=== PATIENT | male | born 1985 | race Caucasian/White ===

== ENCOUNTER 2019-01-30 14:54 | Emergency (ER) | payer SELFPAY ==
--- NOTE | 2019-01-30 15:02 | PDOC ---
History of Present Illness - General Chief Complaint: Injury Stated Complaint: LACERATION INJURY RIGHT THUMB Time Seen by Provider: 01/30/19 15:01 History Source: Patient Exam Limitations: No Limitations - History of Present Illness Initial Comments: 01/30/19 15:10 33 year old male with no PMH presented to ED for right thumb laceration. Pt stated he was cutting wood with a saw, and accidentally cut his finger. He denied numbness, weakness, tingling, fever, chills. Pt admitted to right thumb pain. Last tetanus 10 years ago. Allergies: NKDA Past History - Past Medical History Allergies/Adverse Reactions: Allergies Allergy/AdvReac Type Severity Reaction Status Date / Time No Known Allergies Allergy Unverified 01/30/19 15:02 Home Medications: Ambulatory Orders Cephalexin Monohydrate [Keflex -] 500 mg PO TID 7 Days #21 capsule 01/30/19 Review of Systems - Review of Systems Able to Perform ROS?: Yes Comments:: 01/30/19 15:16 General: denied fever, chills, generalized weakness. HEENT: denied sore throat, rhinorrhea, ear pain. Heart: denied chest pain, palpitations, syncope, diaphoresis. Respiratory: denied shortness of breath, cough, sputum production, hemoptysis. Abdomen: denied abdominal pain, nausea, vomiting, diarrhea, constipation, blood in stool. : denied dysuria, increased urinary frequency, hematuria, urinary incontinence , flank pain. Back: denied back pain. Musculoskeletal: denied joint pain, muscle pain, joint swelling. Neurological: denied headache, dizziness, numbness, tingling, weakness. Skin: admitted to laceration. denied rash, abrasion. *Physical Exam - Physical Exam Comments: 01/30/19 15:17 Constitutional: Well-nourished, Well-developed, appearing stated age. HEENT: head is normocephalic, atraumatic. EOMI. PERRLA. Neck: supple. Full ROM. Heart: regular rhythm. no murmurs, rubs or gallops. Lungs: clear to auscultation bilaterally. no crackles, rhonchi or wheezing. no stridor. Abdomen: soft, nontender. normal bowel sounds. no rebound, guarding, masses. Extremities: peripheral pulses intact. no lower extremity edema. right thumb full ROM at MCP and DIP, full sensation. Neurological: CN 2-12 grossly intact. moves all four extremities. Psych: awake, alert, oriented x3. follows commands. answers questions appropriately. Skin: two 4.0 cm lacerations to right distal thumb, minimal active bleeding, no FB appreciated. Procedures - Laceration/Wound Repair Right Distal 1st digit Wound Length: 2.6 to 5.0 cm Wound Explored: clean, no foreign body present Wound's Depth, Shape: superficial, irregular Irrigated w/ Saline: Yes Betadine Prep: No Anesthesia: 1% Lidocaine Amount of Anesthetic (ccs): 8 Wound Debrided: minimal Wound Repaired With: Sutures Suture Size/Type: 4:0 Number of Sutures: 14 Sterile Dressing Applied: Yes Splint Applied: Yes Right Medial Distal 1st digit Wound Length: 2.6 to 5.0 cm Wound Explored: clean Wound's Depth, Shape: superficial Irrigated w/ Saline: Yes Betadine Prep: No Anesthesia: 1% Lidocaine Wound Debrided: minimal Wound Repaired With: Sutures Suture Size/Type: 5:0 Number of Sutures: 4 (with Eight 4.0) Sterile Dressing Applied: Yes Splint Applied: Yes Medical Decision Making - Medical Decision Making 01/30/19 15:12 33 year old male with no PMH presented to ED with accidental lacertion to right thumb after using saw to cut wood. Neurovascularly intact. Initial Vital Signs Temp Pulse Resp BP Pulse Ox 97.6 F 80 16 137/96 100 01/30/19 14:55 01/30/19 14:55 01/30/19 14:55 01/30/19 14:55 01/30/19 14:55 Afebrile. No tachycardia. No tachypnea. Mild hypertension. No hypoxia on room air. Imaging ordered: Hand XR Medications ordered: Tetanus immunization, Motrin 800 mg Labs ordered: none 01/30/19 17:36 Hand XR: tyra fracture. Medications ordered: Keflex 500 mg PO once Both lacerations repaired. 14 4.0 sutures to the most distal laceration. 12 total sutures to the more proximal laceration, 4 5.0 and 8 4.0. See procedure note. Wound covered with Bacitracin and gauze. Pt and son informed of how to care for wound and to keep it dry for 24-48 hours. Pt informed to return in 7 days for wound check. Work note given. Pt discharged. Discharge medications: Keflex 500 mg TID for 7 days *DC/Admit/Observation/Transfer Diagnosis at time of Disposition: Laceration, Phalanx, distal fracture of finger - Discharge Dispostion Disposition: HOME Condition at time of disposition: Improved Decision to Admit order: No - Prescriptions Prescriptions: Cephalexin Monohydrate [Keflex -] 500 mg PO TID 7 Days #21 capsule - Referrals Referrals: [facility] [place] [Provider Group] Devon Porras MD [Staff Physician] - Pelon Butterfield MD [Staff Physician] - - Patient Instructions Printed Discharge Instructions: DI for Laceration Repair -- Simple Additional Instructions: You were seen today for two laceration repairs. You were given a tetanus shot today, this is good for 10 years. Keep the wound 100% clean and dry for 24-48 hours. After this period you must change the dressing daily. Run water over the wound, do not scrub, pat dry and then cover with antibiotic ointment like Bacitracin or Neosporin. Cover the wound with gauze. Take Ibuprofen and/or Tylenol over the counter for your pain. They are not the same medicine and can be taken at the same time. Take as advised on labels. I have sent a prescription to your pharmacy for Keflex (an antibiotic). Take as advised on label. Follow up with a Hand Doctor within 3 days. I have provided you with referrals for Dr. Porras and Dr. Butterfield. I have provided you with a referral to a Primary Care Doctor as well: [facility]. Return to the Emergency Department, your Hand Doctor 7 days for a wound check. Return to the Emergency Department in less than 7 days if you develop: fever, chill, nausea, vomiting, increasing pain that does not get better with Tylenol and/or Ibuprofen, numbness, tingling, inability to move your finger, chest pain , shortness of breath or any other new, worsening or concerning symptoms. [facility] TRANSLATION PROVIDED BY [employer] TRANSLATE Furubene visto hoy por dos reparaciones de laceracin. Recibieron rbianna vacuna contra el ttanos hoy, esto es lubin por 10 aos. Mantenga la herida 100% limpia y seca michael 24-48 horas. Despus de felisa perodo debes cambiar el vendaje diariamente. Wenceslao correr el agua sobre la herida, no frote, seque con palmaditas y luego cubra con ungento antibitico stacie Bacitracin o Neosporin. Cubrir la herida con brianna gasa. Elliott Ibuprofeno y / o Tylenol sin receta para peter dolor. No son el mismo medicamento y pueden tomarse al mismo tiempo. Shalonda stacie se aconseja en las etiquetas. He enviado brianna receta a peter farmacia para Keflex (un antibitico). Shalonda stacie se aconseja en la etiqueta. Wenceslao un seguimiento con un mdico de la mano dentro de los 3 marc. Christina javier proporcionado referencias para el Dr. Porras y el Dr. Butterfield. Ismael romo proporcionado brianna referencia a un mdico de atencin primaria: [facility]. Regrese al Departamento de Emergencias en 7 marc para brianna revisin de la herida. Regrese al Departamento de Emergencias en menos de 7 marc si presenta fiebre, escalofro, nuseas, vmitos, aumento del dolor que no mejora con Tylenol y / o Ibuprofeno, entumecimiento, hormigueo, incapacidad para certified pharmacy tech el dedo, dolor en el pecho, dificultad para respirar de la respiracin o cualquier otro sntoma nuevo, que empeora o relativo. Print Language: [facility] [place] - Post Discharge Activity Forms/Work/School Notes: Back to Work
[2019-01-30 15:09] VITALS: BP 137/96; PULSE 80; TEMP 97.6; BMI 28.2
[2019-01-30] MEDS ORDERED: DIPHTH,PERTUSS(ACELL),TET 0.5 ML DISP.SYRIN IM ONE ×2 (15:13→16:04)
[2019-01-30] MEDS ORDERED: IBUPROFEN 400 MG TABLET (FP) PO ONE ×2 (15:13→16:04)
[2019-01-30] MEDS ORDERED: LIDOCAINE HCL 1%, 10 MG/ML (50 mL VIAL) SQ ONE (15:20)
[2019-01-30] MEDS ORDERED: LIDOCAINE HCL 1%, 10 MG/ML (20ML VIAL) ONE (16:04)
--- NOTE | 2019-01-30 16:54 | PDOC ---
Attending Attestation - Resident Resident Name: Pati Branch - ED Attending Attestation I have performed the following: I have examined & evaluated the patient, The case was reviewed & discussed with the resident, I agree w/resident's findings & plan - HPI HPI: 01/30/19 16:54 33 year old male with no PMH presented to ED for right thumb laceration and injury s/p cutting wood with a saw, accidentally cut his finger. He denied numbness, weakness, tingling, fever, chills. tetanus not up to date. +bleeding from site. - Physicial Exam PE: 01/30/19 16:54 General: NAD, well appearing Vascular: 2+ radialis pulses symmetric and equal. 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 sensation grossly intact in median/radial/ ulnar distribution. MSK: soft compartments, Cap refill <2 sec. 2+ radialis pulses bilaterally and symmetric. FDP/FDS intact. no joint tenderness. FROM. sensation to radial/median/ulnar nerve intact. able to give ok sign, thumbs up and flexion/extension at IP jt. Skin: color normal color, warm and well perfused. Laceration to left distal pad of thumb, 3cm SQ and 4cm SQ separate lacerations, extension to distal tip of thumbnail/bed. +bleeding and tender. - Medical Decision Making 01/30/19 16:56 hpi as documented tdap up dated analgesia digital block for analgesia with good NVI and cap refill xray of rt hand/thumb with tuft fx, treat as open wound keflex abx x 1 week course repair of laceration by resident, under my direct supervision. finger splint immobilization. wound cares instructions, abx, analgesia otc DC with suture removal in 10-14 days. monitor for infection, neuro changes, numbness/tingling, weakness, discharge, fever or chills or worsening redness/pain. information provided in German. 01/30/19 17:54 01/30/19 17:54
[2019-01-30] MEDS ORDERED: CEPHALEXIN MONOHYDRATE 500 MG CAPSULE (UD) PO ONE (17:45)
[2019-01-30] MEDS ORDERED: CEPHALEXIN MONOHYDRATE 500 MG CAPSULE (UD) ONE (17:48)
== END 2019-01-30 18:15 | disposition home or self-care (01) ==
LOC: FER 14:54
PROC: 0HQFXZZ Repair Right Hand Skin, External Approach (ICD-10-PCS; principal; 2019-01-30)
PROC: 3E0234Z Introduction of Serum, Toxoid and Vaccine into Muscle, Percutaneous Approach (ICD-10-PCS; 2019-01-30)
DX: S62.521A Displaced fracture of distal phalanx of right thumb, initial encounter for closed fracture (principal); S61.011A Laceration without foreign body of right thumb without damage to nail, initial encounter; W29.8XXA Contact with other powered hand tools and household machinery, initial encounter; Y93.89 Activity, other specified; Y92.9 Unspecified place or not applicable
CPT/HCPCS: 73130-TC-RT-FY; 90715; 99282-25

== ENCOUNTER 2024-08-02 18:08 | Emergency (ER) | payer OTHER ==
[2024-08-02 18:20] VITALS: BP 116/69; PULSE 74; RESP 18; TEMP 97.5; BMI 24.3
[2024-08-02] MEDS ORDERED: FLUORESCEIN NA 1 EA STRIP ONE (19:07)
[2024-08-02] MEDS ORDERED: TETRACAINE 0.5% OPHTH SOLN 2 ML BOTTLE ONE (19:07)
[2024-08-02] MEDS: FLUORESCEIN NA 1 EA STRIP OS ONE (19:41)
[2024-08-02] MEDS: TETRACAINE 0.5% HCL 0.6ML DROPPER.BOTTLE OS ONE (19:41)
== END 2024-08-02 19:41 | disposition home or self-care (01) ==
LOC: JERFT 18:08
DX: H57.12 Ocular pain, left eye (principal); T55.1X1A Toxic effect of detergents, accidental (unintentional), initial encounter
CPT/HCPCS: 99283-25